=== PATIENT | female | born 2000 | race Hispanic/Latino ===

== ENCOUNTER → 2020-03-26 12:21 | Outpatient (CLI) | payer OTHER, MEDICAID, SELFPAY ==
--- NOTE | 2020-03-26 12:24 | DI.US.S_ITS ---
PROCEDURE: US OB >= 14 WEEKS FETUS INDICATIONS: ANATOMY SCAN OUTSIDE/PRIOR DATING DATA: Last menstrual period (LMP): 11/07/2019 LMP-based estimated date of delivery (ANGIE): 08/13/2020 First dating scan (date and location): [facility], 03/26/2020 Estimated date of delivery (ANGIE) from first dating scan: 08/07/2020. TECHNIQUE: Real-time scanning was performed of the fetus, with image documentation and biometric measurements. Endovaginal scanning: Not done COMPARISON: None. FINDINGS: General: A single a live intrauterine gestation is present. Presentation: Vertex. Placenta: Placental position is anterior , without previa. Amniotic fluid index: 13 cm, normal range is 5-24 cm. heart rate: 149 beats per minute. Maternal cervical canal: 4.8 cm long. Normal lower limit is 2.5 cm. biometrics: Biparietal diameter: 4.7 cm equals 20 weeks 2 days Head circumference: 18 cm equals 20 weeks 3 days Abdominal circumference: 15.5 cm equals 20 weeks 4 days Femur length: 3.7 cm equals 21 weeks 6 days Estimated gestational age from initial scan: not applicable. Composite gestational age from present scan: 20 weeks 6 days Estimated weight and percentile: 400 g, 95th percentile Measurement variability for biometric dating: +/- 7 days from 14 weeks to 15 weeks 6 days gestation, +/- 10 days from 16 weeks to 21 weeks 6 days gestation, +/- 2 weeks from 22 weeks to 27 weeks 6 days gestation, +/- 3 weeks for 28 weeks gestation or later. weight reference: 4500 g or EFW >90/95% is considered macrosomia or large for gestational age. EFW <10% is small for gestational age. EFW 5% or less is considered intra-uterine growth restriction. Anatomic survey: Neuro: Ventricles are non-dilated at less than 10 mm. Cisterna magna is normal at 3-11 mm. Cerebellum is normal in size and morphology. Nuchal skin fold: Normal at less than 6 mm between 14-21 weeks gestational age. Face: Nose and lips, facial profile are normal. Spine: No evidence for spina bifida. Heart: 4-chambered heart is present, with normal ventricular outflow tracts. Diaphragm: Diaphragm is intact. Stomach: Left-sided stomach is present. Kidneys: No hydronephrosis. Normal is less than 5 mm in 2nd trimester, less than 7 mm in 3rd trimester. Cord: 3-vessel cord has orthotopic insertion. Bladder: Normal in size. Extremities: All 4 extremities identified. IMPRESSION: A single live intrauterine is seen. No significant discrepancy is found between the estimated gestational age based on these images and the estimated gestational age based upon the given date of the last menstrual period. No anatomic abnormalities are identified. The fetus measures at the 95th percentile for estimated size. Please monitor for future development of macrosomia. Dictated by: Alexander Norman M.D. on 03/26/2020 at 12:49 Approved by: Alexander Norman M.D. on 03/26/2020 at 12:51
== END ==
PROVIDERS: Referring Provider Midwife; Visit Provider Midwife
DX: Z36.89 Encounter for other specified antenatal screening (principal); Z3A.20 20 weeks gestation of pregnancy
CPT/HCPCS: 76811